=== PATIENT | female | born 1955 | race Hispanic/Latino ===

== ENCOUNTER 2018-09-24 06:04 | Day surgery (SDC) | payer MEDICARE, OTHER ==
[2018-09-24] MEDS ORDERED: NACL 0.9% 1000 ML 1,000 ML IV SCH (06:30)
--- NOTE | 2018-09-24 07:15 | Anesthesia Consultation ---
Anesthesia Consult and Med Hx Date of service: 09/24/18 - Airway Anesthetic Teeth Evaluation: Dentures ROM Head & Neck: Adequate Mental/Hyoid Distance: Adequate Mallampati Class: Class II Intubation Access Assessment: Probably Good - Pulmonary Exam CTA: Yes - Cardiac Exam Cardiac Exam: RRR - Pre-Operative Health Status ASA Pre-Surgery Classification: ASA2 Proposed Anesthetic Plan: General - Pulmonary Hx Smoking: Yes (STOPPED 1990) Hx Sleep Apnea: Yes (DX SLEEP APNEA , NO CPAP USE.) - Cardiovascular System Hx Hypertension: No - Central Nervous System Hx Neuromuscular Disorder: Yes (fibromyalgia) Hx Psychiatric Problems: Yes (anxiety) - Endocrine Hx Non-Insulin Dependent Diabetes: Yes - Other Systems Hx Alcohol Use: Yes Hx Substance Use: No Hx Cancer: No
--- NOTE | 2018-09-24 07:19 | Anesthesia Day of Surgery ---
Anesthesia Day of Surgery - Day of Surgery Patient Examined: Yes Patient H&P Reviewed: Yes Patient is NPO: Yes
[2018-09-24] MEDS ORDERED: ZOFRAN IV PRN (07:20)
[2018-09-24] MEDS ORDERED: PERCOCET 5/325 PO PRN (07:20)
[2018-09-24] MEDS ORDERED: VERSED IV NR (08:00)
[2018-09-24] MEDS ORDERED: PEPCID PO NR (08:00)
[2018-09-24] MEDS ORDERED: SUBLIMAZE ONE (09:06)
[2018-09-24] MEDS ORDERED: ZOFRAN ONE (09:06)
[2018-09-24] MEDS ORDERED: DIPRIVAN 10 MG/ML IV ONE (09:06)
[2018-09-24] MEDS ORDERED: XYLOCAINE CARDIAC IV ONE (09:10)
[2018-09-24] MEDS ORDERED: ANCEF/STERILE WATER 2 GM/20 ML 2 GM/20 ML SYRINGE IV ONE (09:13)
[2018-09-24] MEDS ORDERED: ANCEF/STERILE WATER 2 GM/20 ML IV NR (09:20)
[2018-09-24] MEDS ORDERED: WATER FOR IRRIG STERILE IR ONE (10:50)
[2018-09-24] MEDS: DILAUDID IV PRN ×2 (11:08→11:35)
--- NOTE | 2018-09-24 12:28 | Short Stay Summary ---
Short Stay Documentation Date of service: 09/24/18 - History H&P: obtained from office - Allergies and Medications Current Medications: Allergies Iodinated Contrast- Oral and IV Dye Allergy (Verified 09/22/18 14:04) Anaphylaxis Sulfa (Sulfonamide Antibiotics) Adverse Reaction (Verified 11/23/13 14:48) Swelling WASP Allergy (Uncoded 09/22/18 14:04) Swelling Home Medications Medication Instructions Recorded Confirmed Last Taken Type Pramipexole Di-HCl [Pramipexole 1 mg PO QAM 11/23/13 09/22/18 09/23/18 History Dihydrochloride] Rosuvastatin Calcium [Crestor] 10 mg PO DAILY 11/23/13 09/22/18 09/23/18 History Aspirin [Aspir-Low] 81 mg PO DAILY 09/22/18 09/24/18 09/20/18 History Ciprofloxacin HCl [Cipro] 500 mg PO BID 09/22/18 09/22/18 09/23/18 History Pramipexole [Mirapex] 2 mg PO QHS 09/22/18 09/22/18 09/23/18 History Glimepiride [Amaryl] 1 tab PO QDAY 09/24/18 09/24/18 09/23/18 History HYDROcodone/ACETAMINOPHEN 1 tab PO Q4-6H 09/24/18 09/24/18 09/23/18 History [Hydrocodone-Acetamin 10-325 mg] Ketorolac [Toradol] 10 mg PO Q6H PRN 09/24/18 09/24/18 09/22/18 History Metformin HCl 1 tab PO BID 09/24/18 09/24/18 09/23/18 History Pioglitazone HCl 1 tab PO QDAY 09/24/18 09/24/18 09/23/18 History Active Medications Hydromorphone HCl (Dilaudid) 0.25 mg IV Q10MIN PRN PRN Reason: Pain, Moderate (4-6) Stop: 09/24/18 20:00 Last Admin: 09/24/18 11:35 Dose: 0.25 mg Documented by: Sodium Chloride (Nacl 0.9% 1000 Ml) 1,000 mls @ 100 mls/hr IV DIRECT CELESTE Last Admin: 09/24/18 09:23 Dose: 100 mls/hr Documented by: Midazolam HCl (Versed) 2 mg IV PREOP NR Stop: 09/24/18 23:59 Last Admin: 09/24/18 09:30 Dose: 2 mg Documented by: Ondansetron HCl (Zofran) 4 mg IV ONCE PRN PRN Reason: Nausea And Vomiting Stop: 09/24/18 16:00 - Brief post op/procedure progress note Date of procedure: 09/24/18 Pre-op diagnosis: left renal stone 10mm Post-op diagnosis: same Procedure: cysto, left rpg, left uret open end stent; left JJ 6x26; left ureterosscopy, left ureteral dilation Anesthesia: GETA Findings: STONE NOT VIS w/ contrast or fluro, left ureteral stenosis, unable easily pass urs Surgeon: PIPER MALCOLM Estimated blood loss: minimal Pathology: none Condition: stable - Hospital course Hospital course: orpacuhome - Disposition Condition at discharge: Good Disposition: DC-01 TO HOME OR SELFCARE Short Stay Discharge Plan Activity: advance as tolerated Diet: advance as tolerated Follow up with: JUAN R RO MD [Staff Physician] - 7 Days
[2018-09-24 13:19] VITALS: BP 159/73
--- NOTE | 2018-09-24 14:34 | Post Anesthesia Evaluation ---
- Post Anesthesia Evaluation Patient Participated: Yes Airway Patent: Yes Stable Respiratory Function: Yes Temp > 96.8F: Yes Pain Manageable: Yes Adequeate Hydration: Yes Anesthesia Complications: No
--- NOTE | 2018-10-09 11:12 | Operative Report ---
UROLOGY OPERATIVE NOTE PREOPERATIVE DIAGNOSIS: Left renal ureteropelvic junction a 10 mm stone. PROCEDURE: Cystoscopy, left retrograde pyelogram, left ureteral open-ended stent, left double-J stent 6 x 26, left ureteroscopy, left ureteral dilation. FINDINGS: Stone not easily visible with contrast with fluoroscopy, left ureteral stenosis, unable to easily pass the ureteroscope. SURGEON: Darrion Car MD ESTIMATED BLOOD LOSS: Minimal. PATHOLOGY: None. CONDITION: Stable. HOSPITAL COURSE: OR, PACU. CLINICAL INDICATIONS: The patient had a stone that was difficult to visualize preoperatively. She was scheduled for this procedure with the retrograde with possible lithotripsy versus stent or the procedure. The patient was counseled on these options, desired to proceed. DESCRIPTION OF PROCEDURE: The patient was transferred to OR suite in supine position. Under biplanar fluoroscopy, we were unable to visualize the stone. At this point, the patient was placed in stirrups. Cystoscope was passed. Pancystoscopy demonstrated no tumors. Left UO was cannulated 8-[place] cone-tipped catheter, contrast was injected and even with the contrast infiltrating, we could not see the stone easily. At this point, we elected passing a Glidewire. Glidewire was passed. We attempted manipulation and passage with a flexible and then a rigid scope and I was only able to get this into the very distal ureter approximately 1 cm up. There was some ureteral stenosis and I felt at this time due to the patient's history, it would be safer to place a double-J stent. At this point, a 6 x 26 double-J stent was passed over the wire under direct and fluoroscopic visualization when the wire and string removed, nice proximal J, nice distal J in the bladder, bladder drained. The patient awakened and transferred to the PACU in good and stable condition. PLAN: Staged for future treatment, removal of stent and treatment of stone. JOB# [id number] ATS/NTS
== END 2018-09-24 13:15 | disposition home or self-care (01) ==
LOC: OR 06:04
PROVIDERS: ATTEND Urology
DX: N13.5 Crossing vessel and stricture of ureter without hydronephrosis (principal); N20.0 Calculus of kidney; F17.210 Nicotine dependence, cigarettes, uncomplicated; G47.30 Sleep apnea, unspecified; G70.9 Myoneural disorder, unspecified; E11.9 Type 2 diabetes mellitus without complications; Z88.2 Allergy status to sulfonamides; Z79.899 Other long term (current) drug therapy; Z79.84 Long term (current) use of oral hypoglycemic drugs; Z88.8 Allergy status to other drugs, medicaments and biological substances; Z79.82 Long term (current) use of aspirin; Z91.041 Radiographic dye allergy status; Z98.890 Other specified postprocedural states; F41.9 Anxiety disorder, unspecified; Z90.710 Acquired absence of both cervix and uterus; Z90.49 Acquired absence of other specified parts of digestive tract; K21.9 Gastro-esophageal reflux disease without esophagitis; G43.909 Migraine, unspecified, not intractable, without status migrainosus
CPT/HCPCS: 52332; 82962; A4217; C1726; C1769; C2617; J0690; J1170; J2001; J2250; J2405; J2704; J3010; J7030; Q9967

== ENCOUNTER 2018-10-22 05:42 | Day surgery (SDC) | payer MEDICARE ==
[2018-10-22] MEDS ORDERED: DIPRIVAN 10 MG/ML IV ONE (07:22)
[2018-10-22] MEDS ORDERED: SUBLIMAZE ONE ×2 (07:22)
[2018-10-22] MEDS ORDERED: XYLOCAINE MPF 2% ONE (07:22)
[2018-10-22] MEDS ORDERED: ROBINUL ONE (07:23)
--- NOTE | 2018-10-22 07:34 | Anesthesia Consultation ---
Anesthesia Consult and Med Hx Date of service: 10/22/18 - Airway Anesthetic Teeth Evaluation: Dentures ROM Head & Neck: Adequate Mental/Hyoid Distance: Adequate Mallampati Class: Class I Intubation Access Assessment: Probably Good - Pulmonary Exam CTA: Yes - Cardiac Exam Cardiac Exam: RRR - Pre-Operative Health Status ASA Pre-Surgery Classification: ASA2 Proposed Anesthetic Plan: General - Pulmonary Hx Smoking: Yes (STOPPED 1990) Hx Respiratory Symptoms: No Hx Sleep Apnea: Yes (DX SLEEP APNEA , NO CPAP USE.) - Cardiovascular System Hx Hypertension: No Hx Heart Attack/AMI: No Hx Cardia Arrhythmia: No - Central Nervous System Hx Neuromuscular Disorder: Yes (fibromyalgia, RLS) Hx Psychiatric Problems: Yes (anxiety) - Gastrointestinal Hx Gastroesophageal Reflux Disease: Yes (occasional, relieved with OTC meds) - Endocrine Hx Non-Insulin Dependent Diabetes: Yes - Other Systems Hx Alcohol Use: No Hx Cancer: No Hx Obesity: No - Additional Comments Anesthesia Medical History Comments: No GAC, No FHAC
--- NOTE | 2018-10-22 07:34 | Anesthesia Day of Surgery ---
Anesthesia Day of Surgery - Day of Surgery Patient Examined: Yes Patient H&P Reviewed: Yes Patient is NPO: Yes Beta Blockers: No (n/a) Cardiac Clearance: No (n/a) Pulmonary Clearance: No (n/a)
[2018-10-22] MEDS ORDERED: LACTATED RINGERS 1,000 ML IV SCH (08:04)
[2018-10-22] MEDS ORDERED: SUBLIMAZE IV PRN (08:45)
[2018-10-22] MEDS ORDERED: ANCEF/STERILE WATER 2 GM/20 ML 2 GM/20 ML SYRINGE IV NR (09:00)
[2018-10-22] MEDS ORDERED: VERSED IV PRN (09:02)
[2018-10-22] MEDS ORDERED: VERSED ONE (09:09)
[2018-10-22] MEDS ORDERED: ZOFRAN ONE ×2 (09:19→11:11)
--- NOTE | 2018-10-22 09:25 | Post Operative Note ---
Date of procedure: 10/22/18 Pre-op diagnosis: left stones Post-op diagnosis: same Findings: as above Procedure: cyto rpg ureteroscopy laser Anesthesia: OMARA Surgeon: JUAN R RO Estimated blood loss: minimal Pathology: none Condition: stable Disposition: PACU
--- NOTE | 2018-10-22 09:26 | Discharge Summary ---
Short Stay Discharge Plan Activity: other (no straining ) Weight Bearing Status: Full Weight Bearing Diet: low fat, low cholesterol, low salt Special Instructions: other (inc fluids ) Durable Medical Equipment Needed Upon Discharge: other (has j stent ) Follow up with: SHAILESH SOLORIO MD [Primary Care Provider] - 7 Days JUAN R RO MD [Staff Physician] - 7 Days
[2018-10-22] MEDS ORDERED: WATER FOR IRRIG STERILE IR ONE (10:15)
[2018-10-22] MEDS ORDERED: LASIX ONE (10:18)
[2018-10-22] MEDS ORDERED: ZOFRAN IV NR (11:07)
--- NOTE | 2018-10-22 11:48 | Operative Report ---
PREOPERATIVE DIAGNOSIS: Large left lucent UPJ stone. POSTOPERATIVE DIAGNOSIS: Large left lucent UPJ stone. PROCEDURE: Cystoscopy, bilateral retrogrades, left ureteroscopy with laser of large stone in lower pole nina. SURGEON: Dutch Cooper MD ANESTHESIA: General. FINDINGS: This is a woman, who had a UPJ stone, which was pushed into the kidney. Stent was left. We tried lithotripsy, but it did not work. CT showed the stone in lower pole, now presents for treatment. DESCRIPTION OF PROCEDURE: The patient brought to the operating room and placed on the operating table. Following induction of anesthesia, placed in lithotomy position, prepped and draped in usual sterile fashion. Retrograde showed a gallstone right side and filling defect lower pole of the left kidney. The stent was withdrawn and a wire coiled in the kidney. Again, we did ureteroscopy filled up the kidney in a retrograde fashion, so the stone and laser was started at 8 mullen, went to 10 mullen and we broke the stone into multiple fragments. The patient tolerated the procedure well. A 7-[place] double J coiled in the kidney, brought to recovery in stable condition. JOB# [id number] DAVID/ALEJANDRO
[2018-10-22 11:50] VITALS: BP 134/76
--- NOTE | 2018-10-22 15:14 | Post Anesthesia Evaluation ---
- Post Anesthesia Evaluation Patient Participated: Yes Airway Patent: Yes Stable Respiratory Function: Yes Nausea/Vomiting: No Temp > 96.8F: Yes Pain Manageable: Yes Adequeate Hydration: Yes Anesthesia Complications: No
--- NOTE | 2018-10-23 07:29 | Fluoroscopy Report ---
FLUOROSCOPY RETROGRADE UROGRAPHY: HISTORY: Calculus of kidney. FINDINGS: Fluoroscopy was provided by radiology during retrograde urography by the urologist. 12 fluoroscopic images were captured. Comparison is made to 11/24/13 retrograde urography. [employer] Supervisor film of the abdomen demonstrates a left ureteral stent in position. Subsequent images demonstrate replacement of the left ureteral stent with no evidence of ureteral filling defect. Left ureteroscopy was also performed. Operative notes mention a left renal stone was seen at the lower pole. A holmium laser was utilized to breakup the stone. Please correlate with the operative report as needed. IMPRESSION: Left renal stone. Left ureteral stent replacement.
== END 2018-10-22 12:05 | disposition home or self-care (01) ==
LOC: OR 05:42
PROVIDERS: ATTEND Urology
DX: N20.2 Calculus of kidney with calculus of ureter (principal); N20.1 Calculus of ureter; K80.20 Calculus of gallbladder without cholecystitis without obstruction; G43.909 Migraine, unspecified, not intractable, without status migrainosus; E78.00 Pure hypercholesterolemia, unspecified; G47.30 Sleep apnea, unspecified; K21.9 Gastro-esophageal reflux disease without esophagitis; E11.9 Type 2 diabetes mellitus without complications; F41.9 Anxiety disorder, unspecified; Z88.2 Allergy status to sulfonamides; Z91.040 Latex allergy status; Z79.899 Other long term (current) drug therapy; Z79.82 Long term (current) use of aspirin; Z79.84 Long term (current) use of oral hypoglycemic drugs; Z87.891 Personal history of nicotine dependence; Z90.49 Acquired absence of other specified parts of digestive tract; Z90.710 Acquired absence of both cervix and uterus; Z98.890 Other specified postprocedural states; Z88.8 Allergy status to other drugs, medicaments and biological substances
CPT/HCPCS: 52356; 74420; 82962; A4217; C1758; C1769; C2617; J0690; J1940; J2250; J2405; J2704; J3010; J7120; Q9967